=== PATIENT | female | born 1970 | race African-American/Black ===

== ENCOUNTER 2017-02-10 13:49 | Emergency (ER) | payer OTHER ==
[~2017-02-10] VITALS: Ht 157.5 cm; Wt 89.0 kg
[~2017-02-10 13:49] MED LIST: DOCU-144 PO; HYDR-3498 PO
[2017-02-10 13:53] VITALS: Ht 157.5 cm; Wt 89.0 kg
[2017-02-10] MEDS ORDERED: ONDANSETRON (ODT) 4 MG TAB ODT STA (15:41)
[2017-02-10] MEDS ORDERED: HYDROCODONE/APAP (5/325) TAB PO ONE (16:00)
--- NOTE | 2017-02-10 16:17 | RADRPT ---
PROCEDURE: XR Chest. CLINICAL INDICATION: Chest pain , flank pain TECHNIQUE: Single portable view of the chest was obtained COMPARISON: None FINDINGS: The heart and mediastinum are within normal limits. There are mild bibasilar atelectatic changes. The lungs are otherwise clear. There is no pleural effusion or pneumothorax. RPTAT: AA IMPRESSION: Mild bibasilar atelectatic changes. .Carlos Lombardo MD, MD Date Time Electronically viewed and signed by .Carlos Lombardo MD, on 02/10/2017 16:17 .S/
[2017-02-10 16:24] LABS: ADD UMIC YES; URINE BILIRUBIN (Dip) NEGATIVE (NEGATIVE); URINE BLOOD (Dip) 3+ (NEGATIVE); URINE COLOR LT. YELLOW (YELLOW); URINE GLUCOSE (Dip) NEGATIVE (NEGATIVE); URINE KETONES (Dip) NEGATIVE (NEGATIVE); URINE LEUKOCYTE ESTERASE (Dip) NEGATIVE (NEGATIVE); URINE NITRITE (Dip) NEGATIVE (NEGATIVE); URINE TOTAL PROTEIN (Dip) NEGATIVE (NEGATIVE); URINE UROBILINOGEN (Dip) 0.2 E.U./dL (0.1-1.0)
[2017-02-10 16:32] LABS: ADD SCAN DIFF NO
[2017-02-10 16:35] LABS: BASOPHIL # 0.1 10^3/ul (0.0-0.1); BASOPHILS % 0.7 % (0.0-2.0); EOSINOPHILS # 0.2 10^3/ul (0.0-0.5); EOSINOPHILS % 2.5 % (0.0-7.0); HEMATOCRIT 36.4 % (37.0-47.0); HEMOGLOBIN 10.7 g/dl (12.0-16.0); LYMPHOCYTES # 2.2 10^3/ul (0.8-2.9); LYMPHOCYTES % 31.2 % (15.0-51.0); MEAN CORPUSCULAR HEMOGLOBIN 23.5 pg (29.0-33.0); MEAN CORPUSCULAR HGB CONC 29.4 g/dl (32.0-37.0); MEAN PLATELET VOLUME 10.5 fl (7.4-10.4); MONOCYTE # 0.6 10^3/ul (0.3-0.9); MONOCYTES % 8.4 % (0.0-11.0); NEUTROPHIL # 4.1 10^3/ul (1.6-7.5); NEUTROPHILS % 56.4 % (39.0-77.0); PLATELET COUNT 250 10^3/UL (140-415); RED BLOOD COUNT 4.55 10^6/ul (4.20-5.40); RED CELL DISTRIBUTION WIDTH 14.1 % (11.5-14.5); WHITE BLOOD COUNT 7.2 10^3/ul (4.8-10.8)
[2017-02-10 16:46] LABS: ALBUMIN 4.1 g/dl (3.3-4.9); POTASSIUM 3.6 mmol/L (3.5-5.1)
[2017-02-10 16:48] LABS: CREATININE 0.71 mg/dl (0.44-1.00)
[2017-02-10 16:48] LABS: BACTERIA,URINE FEW; MUCUS,URINE FEW
[2017-02-10 16:49] LABS: ALBUMIN/GLOBULIN RATIO 1.13; BILIRUBIN,INDIRECT 0.2 mg/dl (0-1.1); BILIRUBIN,TOTAL 0.2 mg/dl (0.2-1.3); CALCIUM 9.1 mg/dl (8.4-10.2); TOTAL PROTEIN 7.7 g/dl (6.1-8.1)
[2017-02-10] MEDS ORDERED: ONDA4TAB11 PO (17:12)
--- NOTE | 2017-02-10 17:12 | ERD ---
ER Documentation Chief Complaint Date/Time DATE: 02/10/17 Chief Complaint Abdominal pain HPI The patient is a 46-year-old female who presents to the emergency department with complaint of abdominal pain, nausea, vomiting and diarrhea. The patient reports that her symptoms began three days ago, with onset of diffuse, cramping abdominal pain, most severe in the epigastrium. The pain has been coming and going since onset, and has been associated with nausea, several episodes fo nonbilious, nonbloody emesis and diarrhea. The patient denies any black or bloody stools. She notes that she has not had any episodes of vomiting or diarrhea today. The patient rates her current pain as 4/10, but notes that she has not yet taken any medication for pain relief. She denies dysuria, hematuria or flank pain. Denies fevers or chills. Denies recent travel. Denies stream water exposure. Denies immunocompromised state. Denies recent antibiotic use. Denies any contacts with similar symptoms. ROS All systems reviewed and are negative except as per history of present illness. Medications Home Meds Active Scripts Acetaminophen with Codeine (Acetaminophen-Cod #3 Tablet) 1 Each Tablet, 1 TAB PO Q6H, #6 TAB Prov:GABE CAMACHO PA-C 02/10/17 Ondansetron (Zofran Odt) 4 Mg Tab.rapdis, 4 MG PO Q6, #8 Prov:GABE CAMACHO PA-C 02/10/17 Hydrocodone Bit-Acetaminophen* ([place]*) 5-325 Mg Tab, 1 TAB PO Q6 Y for PAIN, # 18 TAB Prov:FREDDY SANZ MD 08/20/15 Docusate Sodium* (Colace*) 100 Mg Capsule, 100 MG PO BID, #60 Prov:FREDDY SANZ MD 08/20/15 Allergies Allergies: Coded Allergies: ibuprofen (Verified Allergy, Mild, ITHCY ALL OVER BODY, 11/25/14) PMhx/Soc History of Surgery: Yes (left forearm) Anesthesia Reaction: No Hx Neurological Disorder: No Hx Respiratory Disorders: No Hx Cardiac Disorders: No Hx Psychiatric Problems: Yes (depression) Hx Miscellaneous Medical Probl: No (kidney stone) Hx Alcohol Use: No Hx Substance Use: No Hx Tobacco Use: No Smoking Status: Never smoker Physical Exam Vitals Vital Signs Date Time Temp Pulse Resp B/P Pulse Ox O2 Delivery O2 Flow Rate FiO2 02/10/17 17:19 18 98 Room Air 02/10/17 13:53 98.1 83 18 141/90 99 Physical Exam GENERAL: Well-developed, well-nourished, in no acute distress HEENT: Head is normocephalic, atraumatic. Moist mucous membranes. NECK: Supple. Full range of motion. RESPIRATORY: Lungs are clear to auscultation bilaterally. Equal breath sounds. Normal expiratory effort. CARDIOVASCULAR: Regular rate and rhythm. S1 and S2 normal. GASTROINTESTINAL: Abdomen is soft, nontender, and nondistended. No guarding, no rebound tenderness. Normal bowel sounds. No gross peritonitis. No tenderness at McBurney's point. Negative Keen's sign. FLANK: No CVA tenderness, no mass or swelling. EXTREMITIES: No clubbing, cyanosis, or edema. Normal skin perfusion. Moving all extremities. NEUROLOGIC: The patient is alert, awake, and oriented. INTEGUMENT: Skin is clean, dry and intact. PSYCHIATRIC: Appropriate; Cooperative. Result Diagram: 02/10/17 1625 02/10/17 1625 Results 24 hrs Laboratory Tests Test 02/10/17 15:10 02/10/17 16:25 Urine Color LT. YELLOW Urine Clarity CLEAR Urine pH 6.0 Urine Specific [place] 1.015 Urine Ketones NEGATIVE Urine Nitrite NEGATIVE Urine Bilirubin NEGATIVE Urine Urobilinogen 0.2 E.U./dL Urine Leukocyte Esterase NEGATIVE Urine Microscopic RBC 5-10/HPF Urine Microscopic WBC 0-2/HPF Urine Epithelial Cells FEW Urine Bacteria FEW Urine Mucus FEW Urine Hemoglobin 3+ Urine Glucose NEGATIVE% Urine Total Protein NEGATIVE White Blood Count 7.210^3/ul Red Blood Count 4.5510^6/ul Hemoglobin 10.7g/dl Hematocrit 36.4% Mean Corpuscular Volume 80.0fl Mean Corpuscular Hemoglobin 23.5pg Mean Corpuscular Hemoglobin Concent 29.4g/dl Red Cell Distribution Width 14.1% Platelet Count 48396^3/UL Mean Platelet Volume 10.5fl Neutrophils % 56.4% Lymphocytes % 31.2% Monocytes % 8.4% Eosinophils % 2.5% Basophils % 0.7% Nucleated Red Blood Cells % 0.0/100WBC Neutrophils # 4.110^3/ul Lymphocytes # 2.210^3/ul Monocytes # 0.610^3/ul Eosinophils # 0.210^3/ul Basophils # 0.110^3/ul Nucleated Red Blood Cells # 0.010^3/ul Sodium Level 143mmol/L Potassium Level 3.6mmol/L Chloride Level 105mmol/L Carbon Dioxide Level 23mmol/L Anion Gap 19 Blood Urea Nitrogen 10mg/dl Creatinine 0.71mg/dl Glucose Level 82mg/dl Calcium Level 9.1mg/dl Total Bilirubin 0.2mg/dl Direct Bilirubin 0.00mg/dl Indirect Bilirubin 0.2mg/dl Aspartate Amino Transf (AST/SGOT) 22IU/L Alanine Aminotransferase (ALT/SGPT) 22IU/L Alkaline Phosphatase 85IU/L Total Protein 7.7g/dl Albumin 4.1g/dl Globulin 3.60g/dl Albumin/Globulin Ratio 1.13 Lipase 93U/L Current Medications Medications (Trade) Dose Ordered Sig/Jordan Route PRN Reason Start Time Stop Time Status Last Admin Dose Admin Ondansetron HCl (Zofran Odt) 4 mg ONCE STAT ODT 02/10/17 15:41 02/10/17 15:44 DC 02/10/17 15:52 Acetaminophen/ Hydrocodone Bitart ([place] (5/325)) 1 tab ONCE ONCE PO 02/10/17 16:00 02/10/17 16:01 DC 02/10/17 15:53 Procedures/MDM DIAGNOSTIC TESTS AND INTERPRETATION: PROCEDURE: XR Chest. CLINICAL INDICATION: Chest pain , flank pain TECHNIQUE: Single portable view of the chest was obtained COMPARISON: None FINDINGS:The heart and mediastinum are within normal limits. There are mild bibasilar atelectatic changes. The lungs are otherwise clear.There is no pleural effusion or pneumothorax. IMPRESSION:Mild bibasilar atelectatic changes. .Carlos Lombardo MD, MD Date Time Electronically viewed and signed by .Carlos Lombardo MD, on 02/10/2017 16: 17 MEDICAL DECISION MAKING: This is a 46-year-old female presenting to the Emergency Department with complaint of abdominal cramping, nausea, vomiting and diarrhea for three days. The patient had no significant abnormalities on physical examination. The differential diagnosis includes, but is not limited to , ileus, volvulus, incarcerated hernia, GERD, PUD, viral illness, gastroenteritis, infectious diarrhea, food allergy, bowel obstruction, inflammatory bowel disease, peritonitis, appendicitis, pancreatitis, gastritis, cholecystitis, pancreatitis, perforated viscus, mesenteric ischemia, diverticulitis. I suspect acute gastroenteritis. Doubt dysentery as the patient has no blood in stools. Doubt C. diff, as the patient has no recent antibiotic use. Doubt traveler's diarrhea, patient has had no recent travel. Doubt parasitic infection, patient has had no stream water or immunocompromised status. Doubt cholecystitis, no RUQ tenderness, negative Keen's sign. Doubt pancreatitis - clinical presentation inconsistent. Doubt perforated ulcer, patient has a non -surgical abdomen. Doubt small bowel obstruction, patient is passing flatus, abdomen is non-distended. Doubt appendicitis, patient has no McBurney's point tenderness, no guarding, non-surgical abdomen, no tenderness over the RLQ. Doubt diverticulitis, exam inconsistent. Doubt pneumonia, no focal evidence on x-ray. Doubt ischemic bowel, no pain out of proportion to examination. Doubt torsion, symptoms and examination inconsistent. Abdominal examination is benign , with no peritoneal signs present. No evidence of acute/surgical abdomen, or any other emergent medical condition. The patient's mucous membranes are moist , and she is tolerating POs appropriately, with no vomiting or diarrhea. No indication of dehydration. After rest and administration of [place], Zofran and oral fluids, the patient reports no new complaints. She has had no episodes of emesis or diarrhea while in the emergency department. Upon my review and interpretation of the patient's presentation, clinical data, and overall ER course, I believe the patient's symptoms are most consistent with abdominal cramping, vomiting, diarrhea, uncertain etiology, but likely viral. Symptoms likely secondary to acute gastroenteritis. At this time, the patient is in stable condition and therefore can be discharged home with a prescription for Tylenol #3 and Zofran and strict return precautions for signs of deteriorating or worsening condition. The patient is advised to follow up with their primary medical provider within 1-2 days for reevaluation and further management, or return to the ER sooner for any worsening symptoms, including inability to tolerate POs, abdominal pain, altered mental status, neck pain, neck stiffness, persistent vomiting, persistent fevers greater than 100.4 F, or any other concerning symptoms. I shared my medical decision making and plan with the patient and she verbally understands and agrees with the plan for further observation and care as an outpatient. At the time of discharge, all questions were answered. Departure Diagnosis: Primary Impression: Abdominal pain Abdominal location: unspecified location Qualified Code: R10.9 - Abdominal pain, unspecified location Additional Impressions: Vomiting Vomiting type: unspecified Vomiting Intractability: non-intractable Nausea presence: unspecified Qualified Code: R11.10 - Non-intractable vomiting, presence of nausea not specified, unspecified vomiting type Diarrhea Diarrhea type: unspecified type Qualified Code: R19.7 - Diarrhea, unspecified type Condition: Stable Patient Instructions: Gastroenteritis, Viral (6Y-Adult), Self-Care for Vomiting and Diarrhea Additional Instructions: Call your primary care doctor TOMORROW for an appointment during the next 1-2 days.See the doctor sooner or return here if your condition worsens before your appointment time. GABE CAMACHO PA-C Feb 10, 2017 17:12
[2017-02-10] MEDS ORDERED: ACET1TAB40 PO (17:13)
[2017-02-10 17:19] VITALS: RESP 18
== END 2017-02-10 17:20 | disposition home or self-care (01) ==
LOC: FTE 13:49
DX: R10.84 Generalized abdominal pain (principal); R11.10 Vomiting, unspecified; R19.7 Diarrhea, unspecified
CPT/HCPCS: 71010; 80053; 81001; 83690; 85025; Z7502; Z7610; 81003

== ENCOUNTER 2017-10-20 19:26 | Emergency (ER) | payer OTHER ==
[~2017-10-20] VITALS: Ht 162.6 cm; Wt 100.9 kg
[~2017-10-20 19:26] MED LIST changes: +ACET1TAB40 PO; +ONDA4TAB11 PO
[2017-10-20 19:29] VITALS: Ht 162.6 cm; Wt 100.9 kg
[2017-10-20 21:40] VITALS: TEMP 98.7
[2017-10-20] MEDS ORDERED: ACET-820 PO (21:48)
[2017-10-20 22:55] VITALS: PULSE 84; RESP 17
--- NOTE | 2017-10-21 00:51 | ERD ---
ER Documentation Chief Complaint Chief Complaint pt verbalized "chronic back pain";per pt she's switching MD currently HPI 47-year-old female complaining of back pain. Patient states that she is switching doctors currently and needs a refill of her Tylenol for medication. Patient states her back pain today is no different or severe than normal. Denies any numbness or tingling down her legs. Has normal urination and bowel movement. Denies fever. Denies acute traumatic injury. ROS All systems reviewed and are negative except as per history of present illness. Medications Home Meds Active Scripts Acetaminophen with Codeine (Tylenol with Codeine #4 Tablet) 1 Each Tablet, 1 EACH PO DAILY, #10 TAB Prov:COLIN IRAHETA PA-C 10/20/17 Acetaminophen with Codeine (Acetaminophen-Cod #3 Tablet) 1 Each Tablet, 1 TAB PO Q6H, #6 TAB Prov:GABE CAMACHO PA-C 02/10/17 Ondansetron (Zofran Odt) 4 Mg Tab.rapdis, 4 MG PO Q6, #8 Prov:GABE CAMACHO PA-C 02/10/17 Hydrocodone Bit-Acetaminophen* ([place]*) 5-325 Mg Tab, 1 TAB PO Q6 Y for PAIN, # 18 TAB Prov:FREDDY SANZ MD 08/20/15 Docusate Sodium* (Colace*) 100 Mg Capsule, 100 MG PO BID, #60 Prov:FREDDY SANZ MD 08/20/15 Allergies Allergies: Coded Allergies: ibuprofen (Verified Allergy, Mild, ITHCY ALL OVER BODY, 11/25/14) PMhx/Soc History of Surgery: Yes (L Forearm Surg) Anesthesia Reaction: No Hx Neurological Disorder: No Hx Respiratory Disorders: No Hx Cardiac Disorders: No Hx Psychiatric Problems: Yes (Depression) Hx Miscellaneous Medical Probl: Yes (Nephrolithiasis) Hx Alcohol Use: No Hx Substance Use: No Hx Tobacco Use: No Smoking Status: Never smoker Physical Exam Vitals Vital Signs Date Time Temp Pulse Resp B/P Pulse Ox O2 Delivery O2 Flow Rate FiO2 10/20/17 22:55 84 17 98 Room Air 10/20/17 21:40 98.7 10/20/17 19:29 100.9 80 20 131/71 99 Physical Exam GENERAL: The patient is well-appearing, well-nourished, in no acute distress CHEST: Clear to auscultation bilaterally. There are no rales, wheezes or rhonchi. HEART: Regular rate and rhythm. No murmurs, clicks, rubs or gallops. No S3 or S4. ABDOMEN:Soft, nontender and nondistended. Good bowel sounds. No rebound or guarding. No gross peritonitis. No gross organomegaly or masses. No Keen sign or McBurney point tenderness. BACK: No midline or flank tenderness. EXTREMITIES: Equal pulses bilaterally. There is no peripheral clubbing, cyanosis or edema. No focal swelling or erythema. Full range of motion. Grossly neurovascularly intact. NEUROLOGIC: Alert and oriented. Cranial nerves II through XII intact. Motor strength in all 4 extremities with 5 out of 5 strength. Sensation grossly intact. Normal speech and gait. Babinski negative. DTR 2+ throughout. Procedures/MDM MDM: I ran patient's cures report and it is consistent with her story. I will discharge with pain medication. I have low suspicion for overuse of pain medication as she has reported taking medication as it is prescribed. I have low suspicion for cauda equina. I have low suspicion for discitis or epidural abscess. Patient is discharged with strict ER precautions and recommended to follow-up with primary care within 1-2 days for close evaluation. Patient is told if symptoms change or worsen to return immediately to the ER. All questions answered at discharge Departure Diagnosis: Primary Impression: Back pain Condition: Stable Patient Instructions: Back Pain (Acute Or Chronic) Referrals: SOL ACOSTA MD (PCP) Additional Instructions: FOLLOW UP WITH YOUR PRIMARY CARE PHYSICIAN TOMORROW.Return to this facility if you are not improving as expected. COLIN IRAHETA PA-C Oct 21, 2017 00:51
== END 2017-10-20 22:56 | disposition home or self-care (01) ==
LOC: FTE 19:26
DX: M54.9 Dorsalgia, unspecified (principal)
CPT/HCPCS: 99283